=== PATIENT | female | born 1990 | race Two or more races ===

== ENCOUNTER 2016-12-22 05:52 | Day surgery (SDC) | payer OTHER ==
[2016-12-19 11:25] LABS: HEMATOCRIT 40.2 % (36.0-48.0); HEMOGLOBIN 13.5 g/dL (12.0-16.0)
[2016-12-19 11:29] LABS: PARTIAL THROMBO TIME 32.7 SEC (22.5-37.2)
--- NOTE | ~2016-12-22 | OP ---
Record Of Operation [facility] [address] [place]. [address] NAME: ADAMS STOCK : 88 STATUS : REG [facility]#: [id number] AGE: 26 ADM/REG DATE : 12/22/16 MR#: [id number] REPORT SERV DATE: 12/22/16 DICTATED BY: MEMO ARREOLA DATE: 12/22/16 REPORT STATUS : Draft TRANSCRIBED BY: MODL DATE: 12/22/16 DATE OF PROCEDURE: 12/22/2016 PREOPERATIVE DIAGNOSIS: Left superficial parotid pleomorphic adenoma. POSTOPERATIVE DIAGNOSIS: Left superficial parotid pleomorphic adenoma. PROCEDURE PERFORMED: 1. Left superficial parotidectomy. 2. AlloDerm implant reconstruction. SURGEON: Memo Arreola M.D. EDGE GRINDER MACHINE: Penny Moran. ANESTHESIA: General. COMPLICATIONS: None. CONDITION: Stable to recovery. 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 PROCEDURE IN DETAIL: The patient was identified in preoperative holding and taken back to the operating room and placed supine on the operating room table. General anesthesia was established. She was prepped and draped in a standard fashion for the operation. A time- out was called. The patient and procedure were confirmed. The Jamey incision was marked in the preauricular crease into the hairline posteriorly and the skin crease of the neck and infiltrated subcutaneously with 5 mL of 1% lidocaine with 1:100,000 epinephrine. This was done just prior to the prepping and Betadine prep. A facial nerve monitor was placed as well on the orbicularis loyda and orbicularis oculi and the tap test was positive. Using 2.5x loupe magnification and headlight illumination, the operation commenced. A 15 blade was used to make the skin incision. Subplatysmal and subcutaneous flaps were elevated over the parotid lobe, superficial lobe. There was no involvement of the tumor with the skin during the flap elevation. The tumor was posteriorly situated and involved the greater auricular nerve and this was sacrificed. The tail of parotid and parotid tissue was then mobilized off the sternomastoid muscle and the digastric muscle was identified. Superiorly, the tragus and the tragal pointer were identified and then the facial nerve was identified deeper to the tragal pointer and confirmed with the nerve stimulating probe. I dissected the lower division with the nerve dissecting Dario dissector. This was done as well with the mid and upper division portions of the facial nerve. The facial artery was ligated where the lower division of the facial nerve was just passing deep to this vein. No other major vessels required ligation. All branches of the facial nerve stimulated after the tumor was removed. It was sent for frozen section. Record Of Operation [address] [place]. [address] NAME: ADAMS STOCK : 88 STATUS : REG [facility] [place] PAT#: [id number] AGE: 26 ADM/REG DATE : 12/22/16 MR#: [id number] REPORT SERV DATE: 12/22/16 DICTATED BY: MEMO ARREOLA DATE: 12/22/16 REPORT STATUS : Draft TRANSCRIBED BY: CASPER DATE: 12/22/16 Frozen section analysis revealed encapsulated pleomorphic adenoma with no evidence of extension beyond the tumor site and capsule. At this point, the wound was irrigated. Bipolar cautery was used for hemostasis and a 7-Portuguese round fully perforated drain was placed and secured with 3-0 Vicryl suture. A 4 x 7 AlloDerm regenerative tissue matrix was placed of thickness 1.04-2.28. It was allowed to reconstitute in saline for at least 40 minutes prior to the implantation. The wound was closed in layers using 3-0 Vicryl and a 6- 0 running chromic followed by Steri-Strips. The patient was awakened and taken to recovery in stable condition. There were no complications. PH/MODL Memo Arreola M.D. / [id number] CC: Memo Arreola M.D.
[~2016-12-22 05:52] MED LIST: DEPO-PROVERA IJ; VITAMIN B12 PO
== END 2016-12-22 18:35 | disposition home or self-care (01) ==
LOC: SDC 05:52
PROVIDERS: Specialist
PROC: 0HR4XK3 Replacement of Neck Skin with Nonautologous Tissue Substitute, Full Thickness, External Approach (ICD-10-PCS; 2016-12-22)
PROC: 0CB90ZZ Excision of Left Parotid Gland, Open Approach (ICD-10-PCS; principal; 2016-12-22 07:15)
DX: D11.0 Benign neoplasm of parotid gland (principal); K21.9 Gastro-esophageal reflux disease without esophagitis; F17.210 Nicotine dependence, cigarettes, uncomplicated; E66.01 Morbid (severe) obesity due to excess calories; Z82.49 Family history of ischemic heart disease and other diseases of the circulatory system; Z98.890 Other specified postprocedural states; Z68.39 Body mass index [BMI] 39.0-39.9, adult
CPT/HCPCS: 84703; 85014; 85018; 85730; 88307; 88331; A9270-GY; J0690; J2250; J2405; J2550; J2710; J3010; Q4116